=== PATIENT | female | born 2000 | race Caucasian/White ===

== ENCOUNTER → 2023-09-13 | Outpatient (CLI) | payer MEDICAID, SELFPAY ==
[2023-09-17 20:08] LABS: Chlamydia By Nucleic Acid AMP Negative (Negative); Gonococcus By Nucleic Acid AMP Negative (Negative)
[2023-09-19 17:21] LABS: HPV Reflexed? NOT INDICATED
== END | disposition home or self-care (01) ==
PROVIDERS: Visit Provider Advanced Practice Midwife
DX: O99.210 Obesity complicating pregnancy, unspecified trimester (principal); Z3A.00 Weeks of gestation of pregnancy not specified
CPT/HCPCS: 87086; 87491; 87591; 88175; G0145

== ENCOUNTER → 2024-01-14 | Outpatient (CLI) | payer MEDICAID, SELFPAY ==
[2024-01-14 12:48] LABS: Absolute Lymphocyte Count 2.01 X10^3/uL (0.83-4.51); Absolute Neutrophil Count 6.8 X10^3/uL (2.0-7.7); Basophil# 0.03 X10^3/uL; Basophil% 0.3 % (0-1); Hematocrit 35.9 % (37-47); Hemoglobin 11.8 g/dL (12.0-15.0); Lymphocyte # 2.01 X10^3/ul (0.83-4.51); Mean Corp Hgb Conc 32.9 g/dL (32-36); Mean Corpuscular Hgb 28.5 pg (27.0-32.0); Mean Corpuscular Volume 86.7 fL (81-99); Mean Platelet Vol. 9.6 fl (6.2-12.0); Monocyte# 0.55 X10^3/uL; Monocyte% 5.7 % (0-10); NRBC Flagged by Analyzer 0 % (0-5); Neutrophil # 6.83 X10^3/uL (2.7-7.7); Neutrophil % 71.3 % (47-70); Platelet Count 362 K/mm3 (150-450); RBC Distribution Width SD 40.5 fl (35.1-43.9); Red Blood Count 4.14 M/mm3 (4.2-5.4); White Blood Count 9.6 K/mm3 (4.4-11.0)
[2024-01-14 13:12] LABS: Glucose Challenge Gest 1H 50g 114 mg/dL (70-140)
[2024-01-14 13:26] LABS: Hemoglobin A1c 4.8 % (3.8-5.6)
[2024-01-23 11:09] LABS: HIV 1/0/2 SCREEN Non Reactive (Non Reactive); Hep C Antibodies Non Reactive (Non Reactive); Syphilis Antibodies Non Reactive (Non Reactive)
== END | disposition home or self-care (01) ==
LOC: LAB 12:25
PROVIDERS: PCP Family Medicine; Referring Provider Advanced Practice Midwife; Visit Provider Advanced Practice Midwife
DX: O09.92 Supervision of high risk pregnancy, unspecified, second trimester (principal); Z13.1 Encounter for screening for diabetes mellitus; Z3A.27 27 weeks gestation of pregnancy
CPT/HCPCS: 86703; 87340; 36415; 82950; 83036; 85025; 86762; 86780; 86803; 86850; 86900; 86901

== ENCOUNTER → 2024-03-13 | Outpatient (CLI) | payer MEDICAID, SELFPAY ==
[2024-03-13 12:45] LABS: Hepatitis B Surface Antigen Non-Reactive (Nonreactive)
== END | disposition home or self-care (01) ==
LOC: BWCLAB 10:43
PROVIDERS: PCP Family Medicine; Referring Provider Obstetrics & Gynecology; Visit Provider Obstetrics & Gynecology
DX: O09.90 Supervision of high risk pregnancy, unspecified, unspecified trimester (principal); Z3A.00 Weeks of gestation of pregnancy not specified
CPT/HCPCS: 87081; 87340

== ENCOUNTER → 2024-03-20 | Outpatient (CLI) | payer MEDICAID, SELFPAY ==
--- NOTE | 2024-03-20 10:46 | US_ITS ---
STUDY: SECOND AND THIRD TRIMESTER OBSTETRICAL ULTRASOUND - LIMITED REASON FOR EXAM: Female, 23 years old growth LMP: July 05, 2023. PRIOR ULTRASOUND: None. TECHNIQUE: Transabdominal TECHNICAL QUALITY: Adequate. FINDINGS: There is a single intrauterine fetus. The fetus is in a cephalic presentation. There is demonstrated cardiac activity with a heart rate of 138 bpm. There is a normal amniotic fluid volume. The largest amniotic fluid pocket measures 5.2 cm. The amniotic fluid index (MARIAMA) is 15.7 cm. The placenta is posterior in location and is not low lying. There are Grade 1 placental changes. BIOMETRY: BPD: 9.1 cm: 36 weeks, 5 days: 59% HC: 32.6 cm: 37 weeks, 0 days: 23% AC: 32.3 cm: 36 weeks, 1 days: 39% FL: 7.2 cm: 36 weeks, 4 days: 38% Age by LMP: 37 weeks, 0 days. MYNOR by LMP: April 10, 2024. age by current US: 37 weeks, 1 days. MYNOR by current US: April 09, 2024. Estimated weight: 2963 grams, +/- 444 grams, 44 percentile. US/OB Limited With Biometrics IMPRESSION: Single live intrauterine gestation with a mean gestational age of 37 weeks and 1 day. Electronically Signed: Jason Gregg MD at 15:43 EST ,
== END | disposition home or self-care (01) ==
LOC: US 10:46
PROVIDERS: PCP Family Medicine; Referring Provider Obstetrics & Gynecology; Visit Provider Obstetrics & Gynecology
DX: O26.843 Uterine size-date discrepancy, third trimester (principal); Z3A.37 37 weeks gestation of pregnancy
CPT/HCPCS: 76816

== ENCOUNTER 2024-04-17 19:39 | Inpatient (IN) | payer MEDICAID, SELFPAY ==
[2024-04-17 19:59] VITALS: BP 129/70; PULSE 97; RESP 16; TEMP 36.8; O2SAT 95
[2024-04-17 20:01] VITALS: BMI 37.5
[2024-04-17] MEDS: 0.9% Saline Lock 10 ML Syringe IV (20:10)
[2024-04-17 20:53] LABS: Absolute Lymphocyte Count 2.31 X10^3/uL (0.83-4.51); Absolute Neutrophil Count 7.1 X10^3/uL (2.0-7.7); Basophil# 0.03 X10^3/uL; Basophil% 0.3 % (0-1); Eosinophil# 0.11 X10^3/uL; Hematocrit 30.7 % (37-47); Lymphocyte # 2.31 X10^3/ul (0.83-4.51); Lymphocyte % 21.9 % (19-41); Mean Corp Hgb Conc 32.6 g/dL (32-36); Mean Corpuscular Hgb 26.1 pg (27.0-32.0); Mean Corpuscular Volume 80.2 fL (81-99); Mean Platelet Vol. 10.3 fl (6.2-12.0); Monocyte% 8.5 % (0-10); NRBC Flagged by Analyzer 0 % (0-5); Neutrophil # 7.11 X10^3/uL (2.7-7.7); Neutrophil % 67.5 % (47-70); Platelet Count 284 K/mm3 (150-450); RBC Distribution Width CV 14.6 % (11.6-14.6); RBC Distribution Width SD 41.9 fl (35.1-43.9); Red Blood Count 3.83 M/mm3 (4.2-5.4); White Blood Count 10.5 K/mm3 (4.4-11.0)
[2024-04-17] MEDS: miSOPROStol 25 MCG TABLET VAGINAL (20:54)
[2024-04-17] MEDS: Docusate Sodium 100 MG Capsule PO (21:51)
[2024-04-17 21:55] LABS: Syphilis Antibodies Non-reactive
[2024-04-18] VITALS (47 sets, daily range): BP systolic 85–124; BP diastolic 46–74; PULSE 66–96; RESP 16; TEMP 36.6–37.3; O2SAT 97–100
[2024-04-18] MEDS: 0.9% Saline Lock 10 ML Syringe IV ×2 (00:32→08:33)
[2024-04-18] MEDS: Ondansetron 4 MG/2 ML Vial IV ×5 (00:32→21:58)
[2024-04-18] MEDS: miSOPROStol 25 MCG TABLET VAGINAL ×2 (01:08→05:22)
[2024-04-18] MEDS: 0.9% Normal Saline Single 100 ML IV.SOLN. INTRA-UTER (08:31)
[2024-04-18] MEDS: Lactated Ringers 1,000 ML 50 ML IV (08:33)
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
[2024-04-18] MEDS: fentaNYL-bupivacaine (epidural) 100 ML BAG EPIDURAL ×3 (09:27→20:09)
[2024-04-18] MEDS: Lactated Ringers 1,000 ML 200 ML IV ×4 (09:36→23:07)
[2024-04-18] MEDS: Oxytocin 15 Units/NS 250ml 15 UNITS/250 ML IV.SOLN 2 UNITS IV (10:43)
[2024-04-18] MEDS: Docusate Sodium 100 MG Capsule PO ×2 (11:36→22:40)
[2024-04-18] MEDS: LACTATED RINGERS 500 ML 999 ML IV ×2 (13:18→14:01)
--- NOTE | 2024-04-18 17:05 | PN.OBGYN_ITS ---
Subjective Subjective patient is comfortable with epidural. at 12:45 membranes were ruptured and she was 4/50/-3. The nurse reports that she was 5 cm about an hour ago. current tracing: FHT Moderate variability reactive no decelerations category I tracing [place]: q3 min Contractions cx: 5/90/0 some mild bloody show present A/P: plan to continue pitocin. anticipate later tonight Objective Data Objective Data Vital Signs: Vital Signs Temp Pulse Resp BP Pulse Ox 98.5 F 92 16 105/58 L 99 04/18/24 16:02 04/18/24 17:00 04/18/24 15:00 04/18/24 17:00 04/18/24 17:00 Weight: 225 lb 12.054 oz Body Mass Index (BMI) 37.5 Intake & Output: Intake and Output for Last 24 Hours 04/16/24 04/17/24 04/18/24 23:59 23:59 23:59 Intake Total 3372.19 / 3372.19 Output Total 2200 / 2200 Balance 1172.19 / 1172.19 Lab / Micro Data 04/17/24 20:10 Labs: Laboratory Results - last 24 hr 04/17/24 20:10: WBC 10.5, RBC 3.83 L, Hgb 10.0 L, Hct 30.7 L, MCV 80.2 L, MCH 26.1 L, MCHC 32.6, RDW Std Deviation 41.9, RDW Coeff of Brenda 14.6, Plt Count 284, MPV 10.3, Immature Gran % (Auto) 0.800, Neut % (Auto) 67.5, Lymph % (Auto) 21.9, [place] % (Auto) 8.5, Eos % (Auto) 1.0, Baso % (Auto) 0.3, Absolute Neuts (auto) 7.1, Absolute Lymphs (auto) 2.31, Nucleated RBC % 0, Syphilis Total Ab Non- reactive, Blood Type O POSITIVE, Antibody Screen NEGATIVE
[2024-04-19] VITALS (47 sets, daily range): BP systolic 93–120; BP diastolic 51–68; PULSE 60–83; RESP 16–17; TEMP 36.3–37.2; O2SAT 95–100
[2024-04-19] MEDS: fentaNYL-bupivacaine (epidural) 100 ML BAG EPIDURAL (01:05)
[2024-04-19] MEDS: 0.9% Saline Lock 10 ML Syringe IV (02:39)
[2024-04-19] MEDS: Ondansetron 4 MG/2 ML Vial IV (02:39)
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
--- NOTE | 2024-04-19 04:31 | DCINST_ITS ---
Discharge Instructions Diet Discharge Diet: No restrictions DC O2, CPAP, BIPAP needs Home O2 Discharge instructions: No Dressing / Incision Discharge Activity: Return to Normal Activity, May Not Drive (while taking narcotic pain medications.) and May Shower May resume sexual activity in: 4-6 weeks Dressing / Incision Call your doctor if your incision/area has: Continuous Slow Oozing, Sudden Increased Bleeding, Increased Pain/ Swelling, Increased Redness and Foul Smelling Discharge Follow Up Care Please Follow Up With: Daniela Beavers DO When: Call [phone] to make an appointment with your doctor in 6 weeks. If you had elevated blood pressure or 4th degree laceration, you will need to be seen in 2 weeks. Test Results: Test results from this visit will be discussed in further detail at your follow- up appointment, if applicable. Discharge Plan Admission Admit Date/Time: 04/17/24 19:39 Attending Provider: Daniela Beavers Primary Care Provider: Venita Delgado Discharge Orders/Prescriptions Prescriptions: No Action (DME) breast pump Device See Rx Instructions .ROUTE .MEDSUPPLY Qty: 1 0RF Rx Instructions: As directed ondansetron 4 mg tablet,disintegrating 4 mg PO Q6H PRN (Reason: nausea and vomiting) Qty: 60 2RF Referrals / Follow Up: Venita Delgado MD [Primary Care Provider] -
[2024-04-19] MEDS: Oxytocin 15 Units/NS 250ml 15 UNITS/250 ML IV.SOLN 83 UNITS IV (04:47)
[2024-04-19] MEDS: Ibuprofen 600 MG Tablet PO ×2 (05:18→21:18)
--- NOTE | 2024-04-19 06:22 | ED.RN ---
This RN updated charge aide on pt PHQ-4 score of 13 and JV was updated as well. This RN is sitting 1:1 with pt.
[2024-04-19] MEDS: Acetaminophen 500 MG Tablet 1000 MG PO ×2 (06:24→14:46)
--- NOTE | 2024-04-19 06:58 | NURSING ---
Patient PHQ score prompted a crisis/social work consult. Crisis contacted via phone per this RN. Unable to see patient until medically cleared per warp knitting machine operator. Social service consult placed and message left on voicemail for patient to be seen brock. 1:1 sitter initiated and housekeeping cleaner notified.
--- NOTE | 2024-04-19 08:11 | NURSING ---
Dr Murray updated on phq9 results and initiation of sitter with social work consult.
[2024-04-19] MEDS: Senna/Docusate Sodium 1 Tablet PO (10:19)
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
--- NOTE | 2024-04-19 12:15 | CASEMGMT ---
Social Work Assessment Labor and Delivery Unit Patient Address: [place] [address] Phone number: [phone] Date of Referral: 04/17/2024 Time of Referral: 20:18 Referred By: Reena Miller Date of Intervention: 04/19/24 Time of Intervention: 12:15 Reason for Referral: Maternal father alcoholic, anxiety, and depression. History obtained from: Medical records, mother of baby (MOB) and father of baby (FOB).? Household composition: MOB (Josefina Marcum, age 22), FOB (Luis Fernando Mejias, age 33) and their son Marisa, born 04/19/24. Patient's parent/guardian status: MOB and FOB are not and have been together or over 1 year. ???Both are actively involved and will be providing care for baby. MOB denied any concerns with domestic violence and described a positive and supportive relationship with the FOB. Medical History: ?: 1, Para, now 1. MOB received care through [facility] beginning at 10 weeks and 0 days. There was a gap in care from 15 weeks and 1 day-27 weeks and 4 days.? MOB reported an appointment wasn?t made at the 15 week visit and MOB thought she would get a call when it was time for her next appointment and never did.? MOB reported at her 27 week and 4 day visit, all of her subsequent visits were scheduled and MOB reported she made all of them. Apgars: 8 and 9. Weight: 8pounds, 1 oz. Jewelry Internship: [facility] in [place]. Educational Status: MOB and FOB denied any issues or concerns with reading or writing. MOB went to high school through the 11th grade and the FOB graduated from high school. Financial Status: MOB and FOB reported their income is sufficient to meet the needs of their family at this time. JOCELYNE is currently unemployed and is undecided if she is going to seek employment or be a [id number] mom (SAHM). JOCELYNE used to be employed at the [employer] however terminated her employment due to being sick with and not having any maternity leave. Supplies: MOB and FOB reported they have all the supplies they need for baby at this time including but not limited to: Car Seat, bassinet, crib, diapers, bottles and clothing. JOCELYNE also reported she has a breast pump. Childcare/Caregiver(s):? JOCELYNE reported she will be the primary caregiver at this time as a SAHM but also noted that should she return to work that there is a daycare she can utilize at the [facility]?s? place of employment. ? Transportation:? JOCELYNE has her temps and a car but no bottom hoop driver?s license.? TOMÁS reported he is a licensed bottom hoop driver and has a reliable vehicle for transportation to get baby to and from all medical appointments. Programs/Agencies Involved: JOCELYNE is currently connected with [employer] [facility] [employer] [facility] and has Medicaid and food stamps.? JOCELYNE reported she had an appointment with [facility] early on, was supposed to have an appointment, forgot about it and never had any follow up afterwards.? JOCELYNE reported she is going to call again to get another appointment scheduled. ?JOCELYNE used to be involved in counseling with [facility] in [place] however hasn?t been in over 2 years. Children Services/Legal Issues:? Denied. Behavioral Health Issues: ??Mental Health History: ?JOCELYNE has been diagnosed with depression and anxiety, is not currently connected with a psychiatrist, mental health counselor and is not on any medications. TOMÁS denied any mental health diagnoses. ?Substance Use History: JOCELYNE and TOMÁS denied any previous or current drug or alcohol abuse.? JOCELYNE reported she tried weed once and it made her have a panic attack and she hasn?t had anything since. JOCELYNE used to vape and smoke and stopped smoking 6 months ago. ?Family History: JOCELYNE?s side of the family: father is an alcoholic and drug addict. ?everyone in my family has anxiety and depression?. ?JOCELYNE also reported that a lot of her cousins have problems with drugs and alcohol. TOMÁS reported his brother ?smokes a lot of weed? and his brother and sister both have anxiety and possible depression. ??Drug Screens: ?None obtained at the time of this admission. ? Family/Social Stressors: ?JOCELYNE and TOMÁS identified a stressor as limited supports. Both reported that the people who stated they would be there for them are not. Support Systems: Some.? JOCELYNE identified her biggest supports as the FOB and , ?s maternal grandmother (MGM) and paternal grandmother (PGM). MOB also stated she has a close friend that is very supportive and also considers the FOB?s [id number] as a support. Depression/Shaken Baby/Safe Sleeping: pull worker provided verbal and written education on PPD, Safe Sleeping and Shaken Baby.? Parents verbalized an understanding. ??? ASSESSMENT:? MOB and FOB provided consent to social work visit. Upon arrival, MOB was lying in the bed and the FOB was close by on the couch.? was sleeping in the crib. Both were very engaged and were very cooperative. It should be noted that a PHQ-9 had previously been completed so this social media executive also completed a psychiatric assessment in addition to this assessment.? Please refer to the psychiatric assessment for additional details on current depression. Due to the work schedule of the FOB, FOB will be available in the mornings-lunch to take MOB and baby to any needed appointments and will be a support during that time.? ?FOB goes to work either at 1-2pm and doesn?t get off until between 10pm-1-2am. During this time, MOB will primarily be the only one providing care for . At the end of the assessment, social media executive asked to speak to the MOB alone which both MOB and FOB were agreeable to. MOB denied any unmanaged mental health issues with either herself or the FOB and also denied any drug or alcohol abuse with either herself or the FOB. MOB reported feeling safe in her home and denied any previous or current domestic violence with the FOB pull worker observed positive interaction between the MOB and FOB and when the FOB left, the MOB pulled ?s crib close to her bed and sat next to it for the duration of the visit and stated she was going to wake up to feed him after using the bathroom. MOB appeared to be very attentive as did the FOB, both who acknowledged the feeding schedule. Safe Plan of Care for related to substance use: N/A; not needed. ? PLAN:? Baby to be discharged home when ready.? pull worker also provided written information on depression, depression resources and Help Me Grow as additional resources offered by social media executive which MOB and FOB accepted including crisis numbers. No other services requested or indicated. Daniela Shanks, DEPUTY MANAGER, DAYLIGHT DRILLER
[2024-04-20] VITALS (7 sets, daily range): BP systolic 97–114; BP diastolic 54–73; PULSE 66–114; RESP 12–18; TEMP 36.1–36.6; O2SAT 98–99
[2024-04-20] MEDS: Senna/Docusate Sodium 1 Tablet PO (09:13)
[2024-04-20] MEDS: Acetaminophen 500 MG Tablet 1000 MG PO (09:13)
--- NOTE | 2024-04-20 10:18 | PCM.PN.OB ---
Subjective Subjective Patient doing well without complaints. Tolerating PO. Ambulating and voiding without difficulty. Feeding well. Denies chest pain, shortness of breath, calf pain/swelling, fevers, chills, lightheadedness. Objective Data Objective Data Vital Signs: Vital Signs Temp Pulse Resp BP Pulse Ox O2 Del Method 98 F 86 12 114/64 98 Room Air 04/20/24 09:25 04/20/24 09:25 04/20/24 09:25 04/20/24 09:25 04/20/24 09:25 04/20/24 09:25 Oxygen Delivery Method Room Air Weight: 225 lb 12.054 oz Body Mass Index (BMI) 37.5 Intake & Output: Intake and Output for Last 24 Hours 04/18/24 04/19/24 04/20/24 23:59 23:59 23:59 Intake Total 7372.19 / 7372.19 1481.14 / 1481.14 Output Total 2900 / 2900 700 / 700 Balance 4472.19 / 4472.19 781.14 / 781.14 Lab / Micro Data 04/17/24 20:10 ROS Constitutional Constitutional: Denies chills, fatigue, fever(s), poor appetite or weakness Eyes Eyes: Denies blurry vision, change in vision, seeing flashes or spots in vision ENT HEENT: Denies dizziness, headache(s), loss taste/smell or sore throat Cardiovascular Cardiovascular: Denies chest pain, dizziness, dyspnea, irregular heart rhythm, palpitations or rapid heart rate Respiratory/Chest Respiratory/Chest: Denies chest tightness, cough, dyspnea or breast pain Gastrointestinal Gastrointestinal: Denies abdominal pain, constipation or vomiting Genitourinary Genitourinary: Denies dysuria or flank pain Musculoskeletal Musculoskeletal: Denies difficulty walking, joint pain, limited range of motion or numbness Neurologic Neurologic: Denies abnormal movements, abnormal speech, dizziness, numbness, seizure-like activity or syncope Psychiatric Psychiatric: Denies anxiety, behavioral changes, change in appetite, confusion, depression or suicidal thoughts Physical Exam Const alert, oriented x3 and no apparent distress General Appearance: cooperative and comfortable Resp normal respiratory effort Cardio regular rate GI normal to inspection, nondistended, normoactive bowel sounds GI Narrative: uterus is firm below umbilicus Palpation: soft Back/Spine no CVA tenderness and thoraco-lumbar ROM normal Extremity normal to inspection, no clubbing, cyanosis or edema, no calf tenderness and no pedal edema Psych mental status grossly normal, thought process normal, cooperative, affect normal, speech normal, activity/motor behavior normal, denies homicidal ideation and denies suicidal ideation Assessment & Plan (1) Vaginal delivery: COMMENT: DARLENE- 04/19/24 PLAN: Plan s/p PPD # 1 1. routine post delivery care 2. breast feeding- support given 3. rh positive 4. rubella immune 5. depression screen improved today 6. patient desires discharge to home today
--- NOTE | 2024-04-20 10:25 | CASEMGMT ---
Social Work: wine cellar worker met with the mother of baby (MOB) and father of baby (FOB) and provided additional mental health resources which included [facility]. MOB and FOB expressed they are excited to be able to go home today and denied any additional needs/concerns at this time. Daniela Shanks, ORE CHARGER, LABELS MOLDER
[2024-04-20] MEDS: Ibuprofen 600 MG Tablet PO (15:44)
== END 2024-04-20 16:30 | disposition home or self-care (01) | DRG 560 ==
PROVIDERS: Admitting Provider Obstetrics & Gynecology; PCP Family Medicine; Referring Provider Obstetrics & Gynecology; Visit Provider Obstetrics & Gynecology
DX: O48.0 Post-term pregnancy (principal); Z37.0 Single live birth; O99.344 Other mental disorders complicating childbirth; F17.210 Nicotine dependence, cigarettes, uncomplicated; F32.A Depression, unspecified; O99.214 Obesity complicating childbirth; F41.9 Anxiety disorder, unspecified; O26.843 Uterine size-date discrepancy, third trimester; O70.1 Second degree perineal laceration during delivery; O99.334 Smoking (tobacco) complicating childbirth; Z3A.41 41 weeks gestation of pregnancy; Z62.810 Personal history of physical and sexual abuse in childhood
CPT/HCPCS: 59025; 59050; 85025; 86780; 86850; 86900; 86901; 99221; A4216; G0378; J2405